=== PATIENT | female | born 1995 | race American Indian/Alaskan Native ===

== ENCOUNTER 2019-05-16 16:21 | Emergency (ER) | payer MEDICAID ==
[2019-05-16 17:11] VITALS: BP 117/54
--- NOTE | 2019-05-16 17:11 | Emergency Department Report ---
Blank Doc - Documentation Documentation: This is a 24-year-old female that presents with generalized rash. Denies any facial swelling or difficulty breathing This initial assessment/diagnostic orders/clinical plan/treatment(s) is/are subject to change based on patient's health status, clinical progression and re-assessment by fellow clinical providers in the ED. Further treatment and workup at subsequent clinical providers discretion. Patient/guardians urged not to elope from the ED as their condition may be serious if not clinically assessed and managed. Initial orders include: 1- Patient sent to [facility] for further evaluation and treatment
== END 2019-05-16 19:45 | disposition left against medical advice (07) ==
LOC: ED 16:21
DX: R21 Rash and other nonspecific skin eruption (principal); Z53.21 Procedure and treatment not carried out due to patient leaving prior to being seen by health care provider